=== PATIENT | female | born 1995 | race Caucasian/White ===

== ENCOUNTER → 2021-01-01 | Emergency (ER) | payer OTHER ==
[~2021-01-01] VITALS: Ht 157.5 cm; Wt 59.0 kg
[~2021-01-01] MED LIST: MEDROLDOSEPACK PO; PROAIR HFA8.5 GM INH; TESSALON PERLE100 MG PO
[2021-01-01 23:59] LABS: INFLUENZA A ANTIGEN Negative (Negative); INFLUENZA B ANTIGEN Negative (Negative)
[2021-01-02 00:15] VITALS: BP 105/69
== END ==
LOC: M.ERS 22:52
PROVIDERS: Physician Assistant
DX: J06.9 Acute upper respiratory infection, unspecified (principal); Z20.822 Contact with and (suspected) exposure to COVID-19